=== PATIENT | female | born 1945 | race Caucasian/White ===

== ENCOUNTER 2017-04-21 18:23 | Inpatient (IN) | payer MEDICARE ==
[~2017-04-21] VITALS: Ht 162.5 cm; Wt 114.4 kg
--- NOTE | ~2017-04-21 | PR ---
[place], [place] PROGRESS NOTE NAME: JESUS GRAHAM UNIT #: [id number] ROOM: 507 DOCTOR: HUDSON MERA MD BIRTHDATE: [birth year] DOS: 04/23/2017 SUBJECTIVE: The patient came in because of shortness of breath and palpitation. She had been feeling tired as well and also had some dizziness. She had palpitation where her heart was beating fast yesterday between 2:00 and 4:00; however, monitor did not show any tachycardia. She has had ventricular bigeminy constantly with some in the form of bigeminy. She has no chest pain and no loss of consciousness. PHYSICAL EXAMINATION GENERAL: This is a patient who is moderately obese. She is alert, pleasant. VITAL SIGNS: Pulse is 72 and regular, blood pressure 154/78. NECK: Normal JVP. AJR is negative. CARDIOVASCULAR: Auscultation reveals no murmurs. EXTREMITIES: She has good pedal pulses and no edema in the lower extremities. RESPIRATORY: Lungs are clear to percussion and auscultation. Breath sounds are mildly diminished because of obesity. She had a Lexiscan Cardiolite study done, which I believe Dr. Dahl will be reporting on. An echocardiogram was read by Dr. Whitaker yesterday; it demonstrated an LVEF of 70%. IMPRESSION: 1. This patient has dyspnea on exertion probably due to obesity and possibly diastolic dysfunction of the left ventricle. 2. Ventricular bigeminy is probably chronic and in the setting of normal left ventricular systolic function, this is most likely benevolent. No new recommendations. I saw this patient on behalf of Dr. Whitaker. [place], [place] PROGRESS NOTE NAME: JESUS GRAHAM UNIT #: [id number] ROOM: 507 DOCTOR: HUDSON MERA MD BIRTHDATE: [birth year] HUDSON MERA MD CM:PNTRANS [phone] [id number] HUDSON MERA MD 04/24/17104 interface
--- NOTE | ~2017-04-21 | CON ---
[place], [place] REPORT OF CONSULTATION NAME: JESUS GRAHAM UNIT #: [id number] ROOM: 507 DOCTOR: LARISA AMEZCUA MD BIRTHDATE: [birth year] DOS: 04/22/2017 HISTORY OF PRESENT ILLNESS: A 71-year-old female, apparently was consulted. The patient was having bigeminal rhythm. The patient complains of significant dizziness. The patient had significant PVCs and bigeminy. She is a diabetic, hypertensive, hyperlipidemic. No obvious chest discomfort. Complains of dizziness. The patient has a very strong family history of coronary artery disease. PAST MEDICAL HISTORY: Significant for hypertension, hyperlipidemia, diabetes mellitus, dizziness, chronic fatigue, insomnia and labyrinthitis. PAST SURGICAL HISTORY: Hysterectomy, gastric bypass and history of partial lobectomy of the lung, history of sarcoidosis. SOCIAL HISTORY: Denies any alcohol or drug abuse. FAMILY HISTORY: Positive for coronary artery disease. ALLERGIES: IVP DYE. HOME MEDICATIONS: Lotrel, glipizide, melatonin, metformin, and Crestor. CARDIAC RISK FACTORS: Hypertension, hyperlipidemia, diabetes and strong family history of coronary artery disease. REVIEW OF SYSTEMS: CONSTITUTIONAL: No fever, no chills. HEENT: No visual disturbances or hearing problems. Does have significant dizziness. CARDIOVASCULAR: Does have chest heaviness, reports lower extremity edema. Denies palpitations. RESPIRATORY: Has pleuritic pain. NEUROLOGIC: Neurologically stable. GASTROINTESTINAL: No nausea, no vomiting. ENDOCRINE: Intact. SKIN: Normal. PHYSICAL EXAMINATION: VITAL SIGNS: Blood pressure is 120/60. HEENT: Unremarkable. NECK: Supple, no JVD, no thyromegaly, no lymphadenopathy. LUNGS: Diminished breath sounds. HEART: Sounds are regular. ABDOMEN: Soft, nontender. NEUROLOGIC: Stable. LABORATORY DATA: Sodium 141, potassium 4, BUN and creatinine is normal. Liver functions are normal. Troponin is negative. H and H is 14 and 43.9. EKG, sinus rhythm with bigeminal pattern. [place], [place] REPORT OF CONSULTATION NAME: JESUS GRAHAM UNIT #: [id number] ROOM: 507 DOCTOR: LARISA AMEZCUA MD BIRTHDATE: [birth year] IMPRESSION: The patient with diabetes, hypertension, hyperlipidemia with atypical chest discomfort and ventricular bigeminy. RECOMMENDATIONS: Because of significant risk factors, we will review the echocardiogram, add small dose of beta blockers to the current regimen. The patient already had breakfast today, unfortunately not able to do the stress test today. We will set it up as an outpatient. If the echo is abnormal, we will talk to you. Thank you for this interesting consultation. LARISA AMEZCUA MD CM:CONSTR:REPORT OF CONSULTATION 0828 04/22/17 1600 interface
[~2017-04-21 18:23] MED LIST: AMLODIPINE BESY PO; ANTIVERT25 MG PO; B12,B-12,B 12500 MC1 PO; CLINDAMYCIN300 MG PO; CRESTOR20 MG PO; GLUCOPHAGE1000 MG PO; HYDROCODONE BIT1 T11 PO; JANUVIA100 MG PO; LOTREL 5-20 MG1 EACH PO; MECLOFENAMATE S50 MG PO; MELATONIN3 MG PO; METFORMIN500 MG PO; SERTRALINE HCL100 MG PO; ZOFRAN4 MG PO
[2017-04-21 18:37] VITALS: BP 161/99
[2017-04-21 19:20] VITALS: BP 161/76
[2017-04-21 19:22] LABS: BASO % 0.4 % (0.0-1.0); EOS # 0.3 10*3/uL (0.0-0.4); EOS % 2.6 % (1.0-4.0); HEMATOCRIT 43.9 % (37.0-47.0); HEMOGLOBIN 14.4 g/dl (12.0-16.0); LYMPH # 3.9 10*3/uL (1.3-4.4); LYMPH % 37.3 % (27.0-41.0); MEAN CELL VOLUME 92.2 fl (81.0-99.0); MEAN CORPUSCULAR HGB 30.3 pg (27.0-31.0); MEAN CORPUSCULAR HGB CONC 32.8 g/dl (33.0-37.0); MEAN PLATELET VOLUME 11.8 fl (9.6-12.3); MONO # 0.9 10*3/uL (0.1-1.0); MONO % 8.7 % (3.0-9.0); NEUT # 5.3 10*3/uL (2.3-7.9); NEUT % 50.8 % (47.0-73.0); PLATELET COUNT AUTOMATED 180 10*3/uL (130-400); RED BLOOD COUNT 4.76 10*6/uL (4.10-5.10); RED CELL DISTRI WIDTH 13.1 % (0-14.5); WHITE BLOOD COUNT 10.4 10*3/uL (4.8-10.8)
[2017-04-21 19:38] LABS: ALBUMIN 3.7 gm/dl (3.1-4.5); ALKALINE PHOSPHATASE 65 U/L (45-117); BUN 18 mg/dl (7-24); CHLORIDE 106 mmol/L (98-107); CREATININE 0.75 mg/dL (0.55-1.02); SGOT/AST 12 IU/L (3-35); SGPT/ALT 22 U/L (12-78); SODIUM 141 mmol/L (136-145); TOTAL PROTEIN 7.1 gm/dL (6.4-8.2)
[2017-04-21 19:43] LABS: TROPONIN I < 0.015 ng/ml (<0.045)
[2017-04-21 20:30] VITALS: BP 143/78
[2017-04-21 21:40] VITALS: BP 161/84
--- NOTE | 2017-04-21 21:40 | NUR ---
A 71, admitted to 5E, under the services of SUZI Muñoz DO with a diagnosis of VENTRICULAR BIGEMINY, CHEST PAIN OF UNCERTAIN ETIOLOGY. Chief complaint is DIZZINESS, CHEST HEAVINESS. Patient arrived via stretcher from ER. Monitor applied. Initial assessment completed. Vital signs taken and recorded. SUZI MUÑOZ DO notified of admission to the unit. Orders received. See assessment for past medical history, medications and allergies. Patient and/Or family oriented to unit. [facility] visitation policy reviewed. Clothing/patient valuable form completed. ARIEL OCONNELL
[2017-04-21 21:51] VITALS: BP 161/84
--- NOTE | 2017-04-21 22:16 | NUR ---
NOTIFIED OF PATIENT ON FLOOR. NEW ADMISSION ORDERS TO FOLLOW.
--- NOTE | 2017-04-21 23:29 | NUR ---
SPOKE WITH REGARDING CONSULTS. INSTRUCTED TO SCHEDULE ECHO IN AM AND TO ORDER TROPONINS Q6H X2 MORE.
--- NOTE | 2017-04-21 23:34 | NUR ---
IN TO SEE PATIENT AT THIS TIME.
[2017-04-22] VITALS: BP 126/66
[2017-04-22] MEDS ORDERED: GLUCOTROL5 MG PO (00:03)
[2017-04-22] MEDS ORDERED: VITAMIN D-32000 UNI1 PO (00:03)
--- NOTE | 2017-04-22 00:13 | NUR ---
PATIENT AWARE OF HOME MEDICATIONS, BUT WAS UNSURE OF DOSES/FREQUENCIES. MED REC NOW UP TO DATE PER LIST FROM PATIENT'S GRANDDAUGHTER.
[2017-04-22 00:38] LABS: BILIRUBIN NEGATIVE (NEGATIVE); BLOOD NEGATIVE (NEGATIVE); CLARITY CLEAR (CLEAR); COLOR YELLOW (YELLOW); GLUCOSE TRACE (NEGATIVE); KETONE NEGATIVE (NEGATIVE); LEUKO ESTERASE NEGATIVE (NEGATIVE); NITRITE NEGATIVE (NEGATIVE); UROBILINOGEN 0.2 E.U./dl (0.2-1.0)
[2017-04-22 00:52] LABS: EPITHELIAL CELLS 15-20; WBC 0-2 wbc/hpf (0-5)
[2017-04-22 07:21] LABS: BASO % 0.2 % (0.0-1.0); EOS # 0.3 10*3/uL (0.0-0.4); EOS % 3.2 % (1.0-4.0); HEMATOCRIT 42.9 % (37.0-47.0); LYMPH # 3.4 10*3/uL (1.3-4.4); LYMPH % 36.1 % (27.0-41.0); MEAN CELL VOLUME 92.7 fl (81.0-99.0); MEAN CORPUSCULAR HGB 30.2 pg (27.0-31.0); MEAN CORPUSCULAR HGB CONC 32.6 g/dl (33.0-37.0); MEAN PLATELET VOLUME 11.8 fl (9.6-12.3); MONO # 0.8 10*3/uL (0.1-1.0); MONO % 8.5 % (3.0-9.0); NEUT # 4.9 10*3/uL (2.3-7.9); NEUT % 51.8 % (47.0-73.0); PLATELET COUNT AUTOMATED 165 10*3/uL (130-400); RED BLOOD COUNT 4.63 10*6/uL (4.10-5.10); RED CELL DISTRI WIDTH 13.1 % (0-14.5); WHITE BLOOD COUNT 9.5 10*3/uL (4.8-10.8)
[2017-04-22 07:52] LABS: ALBUMIN 3.4 gm/dl (3.1-4.5); ALKALINE PHOSPHATASE 59 U/L (45-117); BUN 14 mg/dl (7-24); CHLORIDE 108 mmol/L (98-107); CHOLESTEROL 132 mg/dL (<200); CREATININE 0.69 mg/dL (0.55-1.02); HDL CHOLESTEROL 46 mg/dl (40-60); LDL CHOLESTEROL 57 mg/dL (9-159); MAGNESIUM 1.7 mg/dL (1.5-2.1); PHOSPHOROUS 3.9 mg/dL (2.5-4.9); POTASSIUM 4.4 mmol/L (3.5-5.1); SGOT/AST 13 IU/L (3-35); SGPT/ALT 20 U/L (12-78); SODIUM 143 mmol/L (136-145); TOTAL PROTEIN 6.4 gm/dL (6.4-8.2); TRIGLYCERIDES 143 mg/dl (<150); VLDL CHOLESTEROL 29 mg/dL (6-40)
[2017-04-22 08:00] VITALS: BP 154/82
[2017-04-22 08:00] LABS: VITAMIN D, 25-HYDROXY 29.3 ng/mL (30-100)
--- NOTE | 2017-04-22 08:00 | NUR ---
[employer] in to talk to patient. Patient states lives at [address] with HER DAUGHTER. There are 16 steps in the home. Physician: DR RUIZ [facility]acy[facility] [place] Home health services: NONE Patient's level of ADLs: INDEPENDENT Patient has working utilities: YES DME: NONE Follow-up physician's appointment after d/c: WILL BE MADE PRIOR TO DC Does patient want to access PORTAL?: Discharge plan HOME. MARGARITA CONLEY
--- NOTE | 2017-04-22 08:21 | NUR ---
IN TO SEE PATIENT. NEW ORDERS RECEIVED.
--- NOTE | 2017-04-22 08:51 | NUR ---
ORTHO'S PERFORMED PER ORDER: SUPINE BP 156/77, HR 59 SITTING BP 183/87, HR 66 STANDING BP 155/84, HR 79 PATIENT C/O DIZZINESS WITH MINIMAL MOVEMENT. WILL CONTINUE TO MONITOR. CALL LIGHT WITHIN REACH. FAMILY AT BEDSIDE.
--- NOTE | 2017-04-22 11:10 | NUR ---
IN TO SEE PATIENT.
--- NOTE | 2017-04-22 11:29 | NUR ---
PAGED AT THIS TIME REGARDING MINUTE LONG RUN OF VENTRICULAR BIGEMINY. REQUESTING STRIPS TO BE FAXED TO . AWAITING RETURN PHONE CALL. PATIENT C/O DIZZINESS AND CHEST HEAVINESS.
--- NOTE | 2017-04-22 11:31 | NUR ---
RETURNED CALL. NO NEW ORDERS AT THIS TIME. WILL ADMINISTER METOPROLOL AT THIS TIME PER ORDER. HR NOW 60-70'S.
--- NOTE | 2017-04-22 11:40 | NUR ---
ECHO BEING PERFORMED AT THE BEDSIDE.
[2017-04-22 12:00] VITALS: BP 156/76
--- NOTE | 2017-04-22 13:41 | NUR ---
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 Jasmin Muñiz,PT
--- NOTE | 2017-04-22 14:20 | NUR ---
NOTIFIED REGARDING FAMILY AND PATIENT'S REQUEST FOR ANOTHER HOME VISITOR AND FOR STRESS TEST TO BE DONE BEFORE WEDNESDAY. AWAITING PHYSICIAN'S ORDERS.
--- NOTE | 2017-04-22 14:41 | NUR ---
PHYSICAL THERAPY Patient evaluated on 5, full evaluation to follow. Continue with PT as per plan of care with fall and significant dyspneia with minimal exertion precautions. PAtient is moderate complexity via chart review, tests and evalaution: 29643. Home with 01/03 family support and home health RN and PT versus out patient PT. Thank you for this referral. Jasmin Flores,PT
[2017-04-22 16:00] VITALS: BP 145/64
[2017-04-22 20:00] VITALS: BP 143/61
--- NOTE | 2017-04-22 20:00 | NUR ---
PATIENT IS AWAKE, ALERT AND ORIENTED X3. PLEASANT AND COOPERATIVE. LUNGS ARE CLEAR AND DIMINISHED THROUGHOUT LUNGFIELDS. ROOM AIR. ABDOMEN IS SOFT AND NON-TENDER UPON PALPATION, BOWEL SOUNDS ARE NORMOACTIVE X 4 QUADS. NO EDEMA TO BLE, PPP. PATIENT DENIES ANY PAIN OR DISCOMFORT. CALL LIGHT IS IN REACH.
[2017-04-23] VITALS: BP 142/70
--- NOTE | 2017-04-23 00:40 | NUR ---
24 HOUR CHART CHECK COMPLETED AT THIS TIME.
--- NOTE | 2017-04-23 02:19 | NUR ---
PATIENT RESTING IN BED WITH EYES CLOSED BILATERALLY. RESPIRATIONS ARE EASY AND REGULAR. NO S/S OF PAIN OR DISCOMFORT. CALL LIGHT IS IN REACH.
[2017-04-23 08:00] VITALS: BP 152/76
--- NOTE | 2017-04-23 08:25 | NUR ---
Shift chart check completed.
--- NOTE | 2017-04-23 08:41 | NUR ---
PHYSICAL THERAPY In this AM to gait Mrs Crawford for her therapy session. Pt supine in bed, all transfers were supervision x 1, no LOB. Gait total 230' X 1, supervision X 1, no LOB and little verbal cueing for gait, balance safety, Pt up in her bedside chair no complaints. End with act Ex to bilateral LE of marching, LAQ's, and ankle pumps X 20 reps each and having no problems with this. Pt with call light, phone and breakfast coming. IRLANDA RUIZ NAPHTHALENE OPERATOR.
[2017-04-23 10:15] VITALS: BP 128/43
--- NOTE | 2017-04-23 10:15 | NUR ---
PRBC STARTED. PT UNDERSTANDS S/S REACTION TO REPORT TO NURSING STAFF. IV IN RIGHT FA PATENT, FLUSHES EASILY. WILL STAY WITH PATIENT TO MONITOR, VITAL/CHECKS PER POLICY. SEE TRANSFUSION CHARTING
[2017-04-23 10:34] VITALS: BP 124/65
--- NOTE | 2017-04-23 10:43 | NUR ---
PT OFF FLOOR FOR CARDIAC TESTING
--- NOTE | 2017-04-23 11:27 | NUR ---
INFORMED SIGNED CONSENT OBTAINED FOR LEXISCAN STRESS TEST WITH DR HORNE. RESTING EKG NSR WITH PVC'S HR 64 BP 136/82. PULSE OX 94% LUNGS CLEAR. PT COMPLETED ONE MINUTE OF A LEXISCAN PROTOCOL WITH PT RECEIVING LEXISCAN 0.4MG IV OVER 10 SECONDS. TRIGEMY PVC;S NOTED. NO ST CHANGES. PT C/O CHEST HEAVINESS AND SOB WITH INJECTION. LAST RECOVERY HR 78 AND BP 140/78. PT IN STABLE CONDITION AWAITING NUCLEAR IMAGES.
[2017-04-23 12:00] VITALS: BP 154/78
[2017-04-23 16:00] VITALS: BP 126/60
[2017-04-23] MEDS ORDERED: LOPRESSOR25 MG PO (18:08)
--- NOTE | 2017-04-23 19:30 | NUR ---
Discharge instructions reviewed with patient/family. Patient receptive and verbalizes understanding. Follow-up care understood. Written instructions given to patient/family. tele off, iv out. pt without questions on discharge. understands to call for follow up appointments. daughter at bedside. MICHAEL REHMAN
--- NOTE | 2017-04-26 07:49 | NUR ---
PHYSICAL THERAPY CO-SIGN I approve of the Phyical Therapy notes written above. FROYLAN THAKKAR PT
== END 2017-04-23 19:30 | disposition home or self-care (01) | DRG 391 ==
LOC: ED 18:23 → 5E 20:48 → EDHOLD 20:48 → 5E 21:20
PROVIDERS: Emergency Medicine Emergency Medical Services; Hospitalist; ADMIT Internal Medicine
PROC: 3E073KZ Introduction of Other Diagnostic Substance into Coronary Artery, Percutaneous Approach (ICD-10-PCS; principal; 2017-04-23)
PROC: 4A12XM4 Monitoring of Cardiac Stress, External Approach (ICD-10-PCS; principal; 2017-04-23)
DX: K21.9 Gastro-esophageal reflux disease without esophagitis (principal); J18.9 Pneumonia, unspecified organism; E11.49 Type 2 diabetes mellitus with other diabetic neurological complication; F33.9 Major depressive disorder, recurrent, unspecified; E87.8 Other disorders of electrolyte and fluid balance, not elsewhere classified; Z68.41 Body mass index [BMI] 40.0-44.9, adult; R07.89 Other chest pain; F41.9 Anxiety disorder, unspecified; R00.8 Other abnormalities of heart beat; E66.01 Morbid (severe) obesity due to excess calories; I10 Essential (primary) hypertension; I95.1 Orthostatic hypotension; G47.00 Insomnia, unspecified; E78.00 Pure hypercholesterolemia, unspecified; E53.8 Deficiency of other specified B group vitamins; E78.5 Hyperlipidemia, unspecified; D86.9 Sarcoidosis, unspecified; Z98.84 Bariatric surgery status; Z90.710 Acquired absence of both cervix and uterus; Z90.89 Acquired absence of other organs; Z85.118 Personal history of other malignant neoplasm of bronchus and lung; Z82.49 Family history of ischemic heart disease and other diseases of the circulatory system; Z80.3 Family history of malignant neoplasm of breast; Z91.041 Radiographic dye allergy status; Z79.899 Other long term (current) drug therapy

== ENCOUNTER → 2017-05-03 | Outpatient (CLI) | payer MEDICARE ==
[~2017-05-03] MED LIST changes: +GLUCOTROL5 MG PO; +LOPRESSOR25 MG PO; +VITAMIN D-32000 UNI1 PO
--- NOTE | ~2017-05-03 | HM ---
[place], [place] HOLTER MONITOR REPORT NAME: JESUS GRAHAM UNIT #: [id number] ROOM: DOCTOR: YOLIS PHILLIPS [facility],[place] BIRTHDATE: [birth year] DOS: HOLTER MONITOR REPORT FINDINGS: 1. Sinus rhythm. 2. Frequent PAC. 3. Frequent PVC. 4. Occasional supraventricular tachycardia rate of 130. 5. Severe bradycardia, rate varying from 36 to 50, several episodes about 40s and a few episodes below 40. The patient's associated symptoms are lightheadedness, dizziness, fatigue and tiredness. Underlying sick sinus node syndrome with tachycardia-bradycardia episodes. The patient ____ only very small dose of beta-block agents. The patient is still having very frequent palpitations for a possible ____. The patient's bradycardia is symptomatic. PAULETTE LAGOS MD CM:HOLTER:HOLTER MONITOR REPORT [id number] HAYLEE LAGOS MD [facility]
== END | disposition home or self-care (01) ==
LOC: CARD 08:41
DX: R00.0 Tachycardia, unspecified (principal); R42 Dizziness and giddiness

== ENCOUNTER → 2017-05-31 | Outpatient (CLI) | payer MEDICARE ==
[2017-05-31 09:24] LABS: HEMATOCRIT 41.7 % (37.0-47.0); HEMOGLOBIN 13.6 g/dl (12.0-16.0); MEAN CELL VOLUME 91.9 fl (81.0-99.0); MEAN CORPUSCULAR HGB CONC 32.6 g/dl (33.0-37.0); MEAN PLATELET VOLUME 11.9 fl (9.6-12.3); RED BLOOD COUNT 4.54 10*6/uL (4.10-5.10); RED CELL DISTRI WIDTH 12.9 % (0-14.5); WHITE BLOOD COUNT 10.9 10*3/uL (4.8-10.8)
[2017-05-31 10:47] LABS: ALBUMIN 3.6 gm/dl (3.1-4.5); ALKALINE PHOSPHATASE 69 U/L (45-117); BUN 15 mg/dl (7-24); CHLORIDE 105 mmol/L (98-107); CREATININE 0.56 mg/dL (0.55-1.02); POTASSIUM 4.3 mmol/L (3.5-5.1); SGOT/AST 11 IU/L (3-35); SGPT/ALT 16 U/L (12-78); SODIUM 141 mmol/L (136-145); TOTAL PROTEIN 6.9 gm/dL (6.4-8.2)
== END | disposition home or self-care (01) ==
LOC: LAB 08:39
PROVIDERS: Family Medicine
DX: E11.9 Type 2 diabetes mellitus without complications (principal); R53.83 Other fatigue; E53.8 Deficiency of other specified B group vitamins

== ENCOUNTER → 2017-07-26 | Outpatient (CLI) | payer MEDICARE ==
[2017-07-26 09:55] LABS: HEMATOCRIT 41.1 % (37.0-47.0); HEMOGLOBIN 13.9 g/dl (12.0-16.0); MEAN CELL VOLUME 90.3 fl (81.0-99.0); MEAN CORPUSCULAR HGB 30.5 pg (27.0-31.0); MEAN CORPUSCULAR HGB CONC 33.8 g/dl (33.0-37.0); MEAN PLATELET VOLUME 11.9 fl (9.6-12.3); RED BLOOD COUNT 4.55 10*6/uL (4.10-5.10); RED CELL DISTRI WIDTH 12.5 % (0-14.5); WHITE BLOOD COUNT 10.8 10*3/uL (4.8-10.8)
[2017-07-26 10:22] LABS: ALBUMIN 3.8 gm/dl (3.1-4.5); ALKALINE PHOSPHATASE 58 U/L (45-117); BUN 16 mg/dl (7-24); CHLORIDE 106 mmol/L (98-107); CREATININE 0.72 mg/dL (0.55-1.02); POTASSIUM 4.1 mmol/L (3.5-5.1); SGOT/AST 16 IU/L (3-35); SGPT/ALT 18 U/L (12-78); SODIUM 144 mmol/L (136-145); TOTAL PROTEIN 6.8 gm/dL (6.4-8.2)
[2017-07-27 08:10] LABS: HEPATITIS B SURFACE AG Negative (Negative); HEPATITIS C VIRUS ANTIBODY <0.1 s/co (0.0-0.9)
== END | disposition home or self-care (01) ==
LOC: LAB 09:28
PROVIDERS: Family Medicine
DX: R42 Dizziness and giddiness (principal); R53.83 Other fatigue; R25.1 Tremor, unspecified; E53.8 Deficiency of other specified B group vitamins

== ENCOUNTER → 2017-11-17 | Outpatient (CLI) | payer MEDICARE ==
[2017-11-17 10:28] LABS: HEMATOCRIT 43.7 % (37.0-47.0); HEMOGLOBIN 14.6 g/dl (12.0-16.0); MEAN CORPUSCULAR HGB 30.4 pg (27.0-31.0); MEAN CORPUSCULAR HGB CONC 33.4 g/dl (33.0-37.0); MEAN PLATELET VOLUME 12.2 fl (9.6-12.3); RED BLOOD COUNT 4.8 10*6/uL (4.10-5.10); RED CELL DISTRI WIDTH 12.7 % (0-14.5); WHITE BLOOD COUNT 9.1 10*3/uL (4.8-10.8)
[2017-11-17 10:53] LABS: ALKALINE PHOSPHATASE 68 U/L (45-117); BUN 15 mg/dl (7-24); CHLORIDE 104 mmol/L (98-107); CHOLESTEROL 114 mg/dL (<200); CPK 31 U/L (26-192); CREATININE 0.83 mg/dL (0.55-1.02); HDL CHOLESTEROL 41 mg/dl (40-60); LDL CHOLESTEROL 31 mg/dL (9-159); POTASSIUM 3.7 mmol/L (3.5-5.1); SGOT/AST 15 IU/L (3-35); SGPT/ALT 16 U/L (12-78); SODIUM 140 mmol/L (136-145); TOTAL PROTEIN 6.9 gm/dL (6.4-8.2); TRIGLYCERIDES 208 mg/dl (<150); VLDL CHOLESTEROL 42 mg/dL (6-40)
== END | disposition home or self-care (01) ==
LOC: LAB 10:04
PROVIDERS: Family Medicine
DX: E78.00 Pure hypercholesterolemia, unspecified (principal); E11.9 Type 2 diabetes mellitus without complications; I10 Essential (primary) hypertension; R53.83 Other fatigue

== ENCOUNTER → 2018-03-03 | Outpatient (CLI) | payer MEDICARE | END | disposition home or self-care (01) | LOC: MAMMO 08:09 | DX: Z12.31 Encounter for screening mammogram for malignant neoplasm of breast (principal) ==

== ENCOUNTER → 2018-06-02 | Outpatient (CLI) | payer MEDICARE ==
[2018-06-02 12:02] LABS: ALBUMIN 3.8 gm/dl (3.1-4.5); ALKALINE PHOSPHATASE 295 U/L (45-117); BUN 20 mg/dl (7-24); CHLORIDE 108 mmol/L (98-107); CHOLESTEROL 127 mg/dL (<200); CPK 24 U/L (26-192); CREATININE 0.63 mg/dL (0.55-1.02); HDL CHOLESTEROL 66 mg/dl (40-60); LDL CHOLESTEROL 43 mg/dL (9-159); POTASSIUM 4.1 mmol/L (3.5-5.1); SGOT/AST 136 IU/L (3-35); SGPT/ALT 150 U/L (12-78); SODIUM 141 mmol/L (136-145); TOTAL PROTEIN 6.7 gm/dL (6.4-8.2); TRIGLYCERIDES 88 mg/dl (<150); VLDL CHOLESTEROL 18 mg/dL (6-40)
== END | disposition home or self-care (01) ==
LOC: LAB 11:01
PROVIDERS: Family Medicine
DX: I10 Essential (primary) hypertension (principal); E11.9 Type 2 diabetes mellitus without complications; E55.9 Vitamin D deficiency, unspecified; E78.00 Pure hypercholesterolemia, unspecified

== ENCOUNTER → 2018-06-10 | Outpatient (CLI) | payer MEDICARE ==
[2018-06-10 09:49] LABS: ALBUMIN 3.9 gm/dl (3.1-4.5); ALKALINE PHOSPHATASE 316 U/L (45-117); BUN 19 mg/dl (7-24); CHLORIDE 106 mmol/L (98-107); CREATININE 0.74 mg/dL (0.55-1.02); POTASSIUM 3.8 mmol/L (3.5-5.1); SGOT/AST 87 IU/L (3-35); SGPT/ALT 99 U/L (12-78); SODIUM 140 mmol/L (136-145); TOTAL PROTEIN 7.1 gm/dL (6.4-8.2)
== END | disposition home or self-care (01) ==
LOC: LAB 09:05
PROVIDERS: Family Medicine
DX: R10.9 Unspecified abdominal pain (principal); R79.89 Other specified abnormal findings of blood chemistry

== ENCOUNTER → 2018-06-28 | Outpatient (CLI) | payer MEDICARE ==
[2018-06-28 10:10] LABS: LIPASE 77 U/L (73-393)
[2018-06-28 10:12] LABS: GAMMA GLUTAMYL TRANSPEPTIDASE 1195 U/L (5-55)
[2018-06-29 07:06] LABS: HEPATITIS B SURFACE AG Negative (Negative); HEPATITIS C VIRUS ANTIBODY <0.1 s/co (0.0-0.9)
[2018-06-29 14:07] LABS: ANTI-SMOOTH MUSCLE ANTIBODY 5 Units (0-19)
== END ==
LOC: LAB 08:53
PROVIDERS: Family Medicine
DX: R10.11 Right upper quadrant pain (principal); Z79.899 Other long term (current) drug therapy

== ENCOUNTER 2018-11-19 15:25 | Inpatient (IN) | payer MEDICARE ==
[2018-11-19] VITALS (7 sets, daily range): BP systolic 131–149; BP diastolic 60–114
[~2018-11-19] VITALS: Ht 162.6 cm; Wt 68.7 kg
--- NOTE | ~2018-11-19 | PR ---
[place], [place] PROGRESS NOTE NAME: JESUS GRAHAM [facility] #: [id number] UNIT #: [id number] ROOM: 425 DOCTOR: BLAIR VILLAGRAN MD BIRTHDATE: [birth year] DOS: 11/22/2018 SUBJECTIVE: The patient is resting comfortably. She feels much better. She is about to eat her breakfast. OBJECTIVE: VITAL SIGNS: Blood pressure is 178/88, pulse of 79, respirations 18, temperature 97.6. LUNGS: Diminished breath sounds, clear this morning. HEART: Regular. ABDOMEN: Obese, soft, nontender. EXTREMITIES: Without any edema. ASSESSMENT AND PLAN: 1. The patient admitted with shortness of breath. Chest x-ray showing bilateral pulmonary nodules with bilateral pneumonia. I believe this could be obstructive pneumonia rather than an infectious pathology. We will ask Dr. Hernandez for an opinion. Chest x-ray continues to show the infiltrates. The patient is clinically much improved and the sputum culture preliminary shows normal [place]a. 2. Hypoalbuminemia with lymphedema. The patient is encouraged to eat more protein. 3. CA pancreas with metastatic disease, diffuse on chemotherapy. If Dr. Hernandez feels this is an obstructive pneumonia, the plan is to discharge the patient to home tomorrow. BLAIR VILLAGRAN MD CM:PNTRANS [phone] BLAIR VILLAGRAN MD 11/23/18 0036 interface
--- NOTE | ~2018-11-19 | PR ---
[place], [place] PROGRESS NOTE NAME: JESUS GRAHAM [facility] #: [id number] UNIT #: [id number] ROOM: 425 DOCTOR: ROBERT BOGGS MD,FRANCISCA BIRTHDATE: [birth year] DOS: 11/24/2018 SUBJECTIVE: The patient was noted comfortable at this time, resting to have symptoms of chest pain, shortness of breath has been gradually subsiding, still noted with hypoxia at rest. She has not been noted with symptoms of fever or chills, symptoms of hemoptysis, abdominal pain, nausea, vomiting, and diarrhea. The patient does not report any symptoms of headache, or diplopia. Remaining systems were reviewed. They were noted all negative. PHYSICAL EXAMINATION: VITAL SIGNS: Normal temperature, respiratory rate 20, heart rate 80, blood pressure 122/60-149/86. Pulse oxygen saturation on room air is 86% with 2 to 3 liters nasal cannula 98% saturation recorded. HEENT: Examination shows head was atraumatic. Eyes nonicterus. NECK: Supple. CARDIOVASCULAR: S1, S2 audible. LUNGS: Decreased breath sounds in the lungs. The patient still noted bilaterally. ABDOMEN: Soft, nontender. Bowel sounds present. EXTREMITIES: The patient were noted without any edema. MUSCULOSKELETAL: Without acute deformities. CENTRAL NERVOUS SYSTEM: The patient's cranial nerves 2-12 intact. LABORATORY DATA: BMP that was done this morning, BUN 12, creatinine normal, glucose 151. Potassium was noted 2.9, sodium 146. CBC this morning WBC of 11.4, hemoglobin 10.6, and platelet count 325,000. IMPRESSION: 1. The patient with pulmonary infiltration, ground glass opacity with acute respiratory failure, currently treated for possibility of pneumonia, known history of pancreatic cancer with mets to the lungs and the liver. 2. Hyperkalemia due to treatment secondary to diuretics. PLAN OF MANAGEMENT: The patient has been currently ordered. Discharge the patient by primary care attending. Chest x-ray will be obtained for further assessment. Supplementation of the potassium as well. Based on the chest x-ray assessment, further recommendation about discharge from my standpoint will be given to the nursing staff. The patient most likely will need oxygen supplementation at home and need to be assessed for that. She has been ordered supplementation of the potassium by Dr. Pettit. Other therapy, plan of management with planned treatment changes will be made based on progression of the illness. [place], [place] PROGRESS NOTE NAME: JESUS GRAHAM UNIT #: [id number] ROOM: 425 DOCTOR: FRANCISCA MADRID MD BIRTHDATE: [birth year] FRANCISCA JONES MD CM:PNDANIEL [id number] FRANCISCA BOGGS MD 12/05/18 1018 interface
--- NOTE | ~2018-11-19 | WRIGHTHP ---
[place], [place] PATIENT HISTORY AND PHYSICAL EXAM NAME: JESUS GRAHAM [facility] #: [id number] UNIT #: [id number] ROOM: 407 DOCTOR: BLAIR VILLAGRAN MD BIRTHDATE: [birth year] DOS: 11/19/2018 HISTORY OF PRESENT ILLNESS: This patient is 73-year-old, not known to me. The patient states that she has had increasing shortness of breath for the last 3-4 days, was supposed to have chemotherapy 2 weeks ago, went to see Dr. Simons, but did not get it because of the ongoing lung issue with the possibility of pneumonia. She was given Levaquin, but did not get any better, so she decided to come into the Emergency Room. She denies having any chest pains or palpitations. She does not use oxygen at home, but is currently requiring it, does not have any fever or chills, does not have any abdominal pain, nausea, emesis. PAST MEDICAL HISTORY: Significant for: 1. Bronchial carcinoid about 15-20 years ago. 2. CA of pancreas diagnosed in June 2018. 3. Type 2 diabetes mellitus. 4. Mixed hyperlipidemia. 5. Benign hypertension. 6. History of gastric bypass. 7. Chronic pernicious anemia. MEDICATIONS: She is currently on are amlodipine 5 daily, Creon 2400 mg with meals, vitamin D 2000 units daily, Ogden 5 q. 6 hours, mirtazapine 15 daily, ondansetron 8 mg q. 6 hours p.r.n., Protonix 40 daily, sertraline 100 daily. SOCIAL HISTORY: Nonsmoker, does not use any alcohol. 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 She is a , has 2 grown children. PHYSICAL EXAMINATION: GENERAL: She is awake and alert and oriented, in significant respiratory distress, especially when she does any kind of movement at all. VITAL SIGNS: Graphic trend shows blood pressure 132/70, pulse of 90, respirations 20. NECK: Supple. No lymph nodes. LUNGS: Diminished breath sounds, rales throughout. HEART: Regular. ABDOMEN: Obese, soft, nontender. EXTREMITIES: With trace edema bilaterally. ASSESSMENT AND PLAN: 1. A patient who presents with cough and mild shortness of breath with chest x-ray showing pneumonia. The patient is placed on IV antibiotics. 2. Carcinoma of the pancreas, on chemotherapy. 3. Hypokalemia, supplemented. Potassium levels have improved. 4. Check V/Q scan to make sure that she does not have underlying deep venous thrombosis. [place], [place] PATIENT HISTORY AND PHYSICAL EXAM NAME: JESUS GRAHAM UNIT #: [id number] ROOM: [facility] DOCTOR: BLAIR VILLAGRAN MD BIRTHDATE: [birth year] BLAIR VILLAGRAN MD CM:HISPHYS:PATIENT HISTORY AND PHYSICAL EXAMINATION 8 BLAIR VILLAGRAN MD 11/20/18 0942 interface
--- NOTE | ~2018-11-19 | PR ---
[place], [place] PROGRESS NOTE NAME: [id number] #: [id number] ROOM: 425 DOCTOR: ROBERT BOGGS MD,FRANCISCA BIRTHDATE: [birth year] DOS: 11/25/2018 PULMONARY PROGRESS NOTE SUBJECTIVE: She has been doing well at this time without any acute distress, comfortably lying in the bed this morning. There were no symptoms of acute shortness of breath, coughing, or chest pain reported. OBJECTIVE: VITAL SIGNS: Reviewed as normal temperature, respiratory rate 20, heart rate 97, blood pressure 153/72. The pulse oxygen saturation was recorded as 95% saturation on 2 liters nasal cannula. HEENT: Head was atraumatic, eyes nonicterus. NECK: Supple. CARDIOVASCULAR: S1 and S2 audible. LUNGS: The patient is without any wheezing or crackles at the present time. Breaths are noted decreased in the lungs bilaterally. ABDOMEN: Soft, nontender. Bowel sounds present. EXTREMITIES: No acute change. IMPRESSION: Stable respiratory status, bilateral pulmonary infiltration with history of pancreatic cancer, and respiratory failure, stable. PLAN OF TREATMENT: The patient could be discharged home on oral antibiotics, followed by primary care physician and medical oncologist. Oxygen arrangement for home use has been already made by Dr. Betzy Pettit. FRANCISCA JONES MD CM:PNTRANS [phone] FRANCISCA BOGGS MD 11/26/18218 interface
--- NOTE | ~2018-11-19 | EKG ---
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
--- NOTE | ~2018-11-19 | EKG ---
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
--- NOTE | ~2018-11-19 | DS ---
[place], [place] DISCHARGE SUMMARY NAME: JESUS GRAHAM [facility] #: [id number] UNIT #: [id number] ROOM: 425 DOCTOR: BLAIR PETTIT MD BIRTHDATE: [birth year] DOS: 11/25/2018 DIAGNOSES: 1. Bilateral pneumonia with negative sputum and blood cultures. 2. Interstitial process in the lung. This could indicate a lymphangitic spread rather than infectious pathology. The patient declined a CT scan. 3. Carcinoma pancreas with metastasis on chemotherapy. 4. Hypokalemia. 5. Chronic lymphedema. 6. Hypoalbuminemia. 7. Adult failure to thrive. 8. Benign hypertension. 9. Mixed hyperlipidemia. 10. History of gastric bypass. 11. Chronic pernicious anemia. 12. History of bronchial carcinoid. 13. Type 2 diabetes mellitus. DISCHARGE MEDICATIONS: Will be doxycycline 100 mg twice a day for 7 days, potassium 10 daily, amlodipine 5 daily, Dorothy q.6 p.r.n. 5 mg, Zofran 8 mg q.6 p.r.n. for nausea, Remeron 15 at bedtime, sertraline 100 daily, multivitamin 1 tablet daily, Protonix 40 daily, vitamin D 2000 units daily, Creon 2400 mg t.i.d. with meals, ibuprofen 800 mg t.i.d. p.r.n. HOSPITAL COURSE: The patient is 73 years old, comes in with complaints of shortness of breath and cough. She was being treated as an outpatient with an antibiotic for possibility of chest infection and was not getting any better. She came to the Emergency Room, had a slightly elevated white cell count and a chest x-ray showing bilateral infiltrates diagnosed with pneumonia and was admitted. After admission, she was placed on IV antibiotics. Sepsis was ruled out with negative cultures. She seemed to have quite a lot of third spacing and lymphedema, possibly from hypoalbuminemia. Venous Doppler and V/Q scan was ordered. The patient refused V/Q scan. Venous Doppler came back negative. Sputum cultures and blood cultures have all come back negative. PT/OT has been consulted. For hypokalemia, supplementation has been ordered. The patient is overall stable and achieved a maximum benefit from stay here. Dr. Hernandez did see the patient and the possibility of lymphangitic spread has been raised, but unfortunately we were unable to get a CT scan of the chest because the patient declined. This morning, the patient is stable. Potassium is 2.9. We will give her supplementation this morning. Recheck the potassium and if it is okay, the plan is to discharge her to home with visiting nurses and PT, OT. ADDENDUM The patient is a patient of Dr. Blair Pettit. The patient was supposedly to be discharged yesterday. The oxygen was arranged. The patient has been ordered the potassium supplementation as well. The potassium level improved to 3.4, but the patient refused to be discharged home yesterday. She has been assessed and examined and was not noted any new changes [place], [place] DISCHARGE SUMMARY NAME: JESUS GRAHAM UNIT #: [id number] ROOM: 425 DOCTOR: BLAIR PETTIT MD BIRTHDATE: [birth year] as was yesterday and the patient was assessed and could be discharged to the home setting with oxygen supplementation and other treatment. BLAIR PETTIT MD CM:JULIENNE [id number] BLAIR PETTIT MD 11/26/18 0617 interface
--- NOTE | ~2018-11-19 | PR ---
[place], [place] PROGRESS NOTE NAME: JESUS GRAHAM [facility] #: [id number] UNIT #: [id number] ROOM: 425 DOCTOR: BLAIR VILLAGRAN MD BIRTHDATE: [birth year] DOS: SUBJECTIVE: The patient is feeling good and is not having any complaints. OBJECTIVE: VITAL SIGNS: Graphic trend shows a pressure 122/62, pulse of 80, respirations 20, temperature 97.9. LUNGS: Diminished breath sounds. HEART: Regular. ABDOMEN: Obese, soft, nontender. EXTREMITIES: Chronic lymphedema, third spacing noticed in the upper extremity, seems to be better. LABORATORY DATA: White cell count is 11.4, hemoglobin 10.6, hematocrit 33.9. BMP: Glucose 151, BUN 12, creatinine 0.54. Sodium 146, potassium 2.9, chloride 109, bicarbonate 30. Sputum culture shows light yeast, normal modesta. ASSESSMENT AND PLAN: 1. The patient who presents with shortness of breath and cough diagnosed with pneumonia, but this most likely is lymphangitic pneumonia rather than an infectious etiology. Unfortunately, we were unable to do any CAT scans. The patient refused. 2. Interstitial lung disease, possibly again from the metastatic process rather than an infectious process. The patient is to follow up with PCP as well as Oncology. 3. Hypokalemia. Supplementation will be given. 4. Adult failure to thrive. PT to evaluate her and after that the patient should be able to go home. BLAIR VILLAGRAN MD CM:PNTRANS [id number] BLAIR VILLAGRAN MD 11/25/18 0447 interface
--- NOTE | ~2018-11-19 | EKG ---
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 Kim : 1945 Requested By: BLAIR VILLAGRAN Order Number: [id number] Reading MD: Deo Puga MD Measurements Intervals [place] Rate: 102 P: 40 CO: 136 QRS: -12 QRSD: 83 T: -10 QT: 337 QTc: 439 Interpretive Statements Sinus tachycardia Paired ventricular premature complexes Left atrial enlargement Anterior infarct, age indeterminate Compared to ECG 11/19/2018 21:47:47 Ventricular premature complex(es) now present Atrial abnormality now present Sinus rhythm no longer present Myocardial infarct finding still present Electronically Signed On 11-23-2018 9:39:21 PDT by Deo Puga MD CM:EKGRPT:ELECTROCARDIOGRAM REPORT [id number] BLAIR VILLAGRAN MD EPIPHANY DRAFT REPORT BLAIR VILLAGRAN MD
--- NOTE | ~2018-11-19 | PR ---
[place], [place] PROGRESS NOTE NAME: JESUS GRAHAM [facility] #: [id number] UNIT #: [id number] ROOM: 425 DOCTOR: BLAIR VILLAGRAN MD BIRTHDATE: [birth year] DOS: SUBJECTIVE: The patient is resting comfortably, does not have any new complaints. OBJECTIVE: VITAL SIGNS: Blood pressure is 148/81, pulse of 96, respirations 16, temperature 98.1. LUNGS: Diminished breath sounds. HEART: Regular. ABDOMEN: Obese, soft. EXTREMITIES: Quite a lot of third spacing noticed. LABORATORY DATA: Sputum culture, normal modesta with light yeast. ASSESSMENT AND PLAN: 1. Bilateral pneumonia, most likely obstructive in pattern. The patient was advised to have a V/Q scan as well as a CT of the chest and she refused both. 2. Adult failure to thrive, being evaluated by physical therapy. 3. Chemosis noticed in the eyes. One dose of Lasix to be given. Last echocardiogram in 2016 showed normal LV function without any wall motion abnormalities or major valvular heart disease. 4. Pancreatic carcinoma with mets. Overall, prognosis is poor. BLAIR VILLAGRAN MD CM:PNTRANS [id number] BLAIR VILLAGRAN MD 11/23/18 1904 interface
--- NOTE | ~2018-11-19 | CON ---
[place], [place] REPORT OF CONSULTATION NAME: JESUS GRAHAM [facility] #: [id number] UNIT #: [id number] ROOM: 425 DOCTOR: ROBERT BOGGS MDFRANCISCA BIRTHDATE: [birth year] DOS: 11/22/2018 PULMONARY CONSULTATION EVALUATION AND MANAGEMENT CONSULTATION REQUESTED BY: Betzy Pettit MD REASON FOR CONSULTATION: For assessment of possibility of acute pneumonia. HISTORY OF PRESENT ILLNESS: The patient was noted a 73-year-old white female patient admitted to the hospital under the care of Dr. Betzy Pettit on 11/19/2018. The patient presented to the hospital. The patient was having progressive increased shortness of breath for the past 3 to 4 days. She has been receiving chemotherapy by Dr. Simons from [facility] in [place], [place]. She has been diagnosed with cancer of the pancreas with metastasis to the lungs. The patient has been treated with chemotherapy since then. She does complain of symptoms of wheezing at times and edema of the lower extremity. Denies symptoms of coughing or any chest pain. The patient has been assessed with a chest x-ray, which was suggested as pneumonia diagnosis and the patient currently admitted to the hospital for further care. This morning, the patient is sitting on the bed, stating that she has been feeling better than previously. She denies symptoms of hemoptysis. REVIEW OF SYSTEMS: CONSTITUTIONAL SYMPTOMS: Fatigue and tiredness noted. Denies any symptoms of fever or chills. EYES: Denies any burning, redness, or tenderness. EAR, NOSE, THROAT SYMPTOMS: Denies sore throat, hoarseness, otalgia, or postnasal drainage. CARDIOVASCULAR SYSTEM: Edema of lower extremities. Denies symptoms of orthopnea. Denies palpitations or angina pain. GASTROINTESTINAL SYMPTOMS: Denies dysphagia, nausea, vomiting, diarrhea, abdominal pain, hematemesis, melena, or hematochezia. GENITOURINARY SYMPTOMS: Denies dysuria, urinary incontinence, or hematuria. MUSCULOSKELETAL SYMPTOMS: Denies any joint pain. No deformities or redness. CENTRAL NERVOUS SYSTEM: No dizziness, headache, diplopia, or syncopal episodes. Remaining systems were reviewed. They were noted all negative. PAST MEDICAL HISTORY: 1. Diagnosis of pancreatic cancer in 06/2018, mets to the lungs. 2. History of bronchial carcinoid several years ago. 3. Type 2 diabetes mellitus. 4. Mixed hyperlipidemia. 5. Benign essential hypertension. 6. History of morbid obesity with gastric bypass surgery. PAST SURGICAL HISTORY: 1. Gastric bypass surgery. 2. ERCP with stent placement as well previously. 3. Pacemaker insertion. [place], [place] REPORT OF CONSULTATION NAME: JESUS GRAHAM UNIT #: [id number] ROOM: 425 DOCTOR: ROBERT BOGGS [facility] BIRTHDATE: [birth year] 4. Cholecystectomy. 5. Hysterectomy. 6. Appendectomy. 7. Right knee replacement. 8. Left partial lobectomy for the carcinoid tumor. SOCIAL HISTORY: The patient is currently . She lives at home. Reported nonsmoker lifetime and has 2 children. FAMILY HISTORY: The patient was reported for malignancy. CURRENT MEDICATIONS: Administered for the patient on this hospitalization are use of Remeron, Zoloft, amlodipine, Protonix, IV Rocephin, Zithromax, ibuprofen, Creon capsule 3 times a day with meals and multivitamin soft gel 1 a day. DRUG ALLERGIES: IVP DYE ALLERGIES. PHYSICAL EXAMINATION: GENERAL: This is a 73-year-old female patient who has been currently noted awake and alert without any acute distress, sitting on the side of bed, using oxygen supplementation by the nasal cannula. Height recorded by the nursing staff on current admission as 5 feet 4 inches, weight of 143 pounds, BMI 24. VITAL SIGNS: For the patient, which are recorded shows normal temperature, respiratory rate 18-16, heart rate 95-79, blood pressure is 156/67-178/88. HEENT: Examination shows head was atraumatic. Eyes nonicterus. NECK: Supple. CARDIOVASCULAR SYSTEM: S1 and S2 audible. LUNGS: Scattered crackles in the lungs with decreased breath sounds bilaterally. ABDOMEN: Soft, nontender. Bowel sounds present. EXTREMITIES: Noted 1+ pitting edema of the lower extremities without any deformities. MUSCULOSKELETAL: Noted without any acute deformities. CENTRAL NERVOUS SYSTEM: Appeared to be generally intact. No focal deficit. LABORATORY DATA: CBC that was done on 11/19/2018; normal WBC count, hemoglobin 10.8, platelet count 445,000. CMP that was done on 11/19/2018 admission; normal BUN and creatinine, glucose 148, potassium 3.2. Albumin 1.7. Troponin 3 sets on 11/19/2018 noted as negative. Blood culture, no bacterial growth. The culture of the sputum was showing preliminary normal modesta from yesterday. The Gram stain noted with upper respiratory tract specimen; many epithelial cells and white blood cells. Ultrasound of the bilateral lower extremities was completed, does not show any deep venous thrombosis. Blood culture so far showed no bacterial growth. The chest x-ray, which was reviewed in this hospital on the of this month was completed on admission was noted with pulmonary nodules with bilateral pulmonary infiltration, which were noted scattered. CT scan of chest was ordered yesterday, which was refused by the patient. She also has a V/Q scan ordered by Dr. Betzy Pettit, which was canceled due to the patient's refusal to get the testing done. She has a CT scan of the chest, abdomen and pelvis, which was completed in [place], [place] REPORT OF CONSULTATION NAME: JESUS GRAHAM UNIT #: [id number] ROOM: 425 DOCTOR: FRANCISCA MADRID MD BIRTHDATE: [birth year] [facility], which was reviewed and it was noted with evidence of pulmonary nodule in the lungs bilaterally. The liver met was also noted. Evidence of a stent in the pancreatic and bile ducts was also reported. IMPRESSION: 1. The patient who has been currently admitted to the hospital was noted with increased shortness of breath. The CT scan on was showing bilateral ground-glass opacities at that time, current findings essentially were not suggestive of acute pneumonia. The ground-glass opacity could be seen with the possibility of allergic drug reaction including chemotherapy cannot be completely excluded. Empirically, the patient has been treated with acute pneumonia. 2. Edema of the lower extremity, most likely secondary to fluid overload, rule out congestive heart failure as well. 3. Known history of pancreatic cancer with metastasis to the lung with reported reduction of the size of the nodule with the last CT scan of the chest report from [facility]. Pulmonary infiltration certainly is secondary to congestive heart failure and fluid overload would be also considered. PLAN OF MANAGEMENT: At this time, the patient is receiving IV Zithromax and Rocephin. Continue treatment for the pneumonia, refusing further CT scan or other assessment done at the present time. Continue conservative treatment, diuretic therapy in case of worsening of the edema. Consider getting a Cardiology consultation from the cardiac standpoint to assess the possibility of congestive heart failure with worsening current chest x-ray appearance. The respiratory tract specimen noted suboptimal at the present time. Continuation of other plan of management, DVT prophylaxis. Other supportive plan of treatment and care plan. If the patient wishes, she could be transferred to her medical oncologist in [facility] in [place], [place] for further assessment, management and ongoing acute illnesses. Other therapy, plan of management with additional treatment changes will be ordered based on progression of the illness. Thanks for allowing me to participate in the care of this patient. FRANCISCA JONES MD CM:CONSTR:REPORT OF CONSULTATION 1051 11/23/18 0130 interface
--- NOTE | ~2018-11-19 | PR ---
[place], [place] PROGRESS NOTE [id number] UNIT #: [id number] ROOM: 425 DOCTOR: DAVIDSON PENNY MD BIRTHDATE: [birth year] DOS: Addendum to discharge surgery from yesterday by Dr. Pettit. SUBJECTIVE: The patient has bilateral pneumonia, hypoxemia, going home on oxygen today cleared by Dr. Hernandez, the drywall finishing foreman. OBJECTIVE: GENERAL APPEARANCE: The patient is alert and oriented x 3, in no visible distress. VITAL SIGNS: Blood pressure 153/72, heart rate 97 beats per minute, breathing 20 times per minute, temperature 99 degrees Fahrenheit. The patient is wearing oxygen. HEENT AND NECK: Exam within normal limits. CARDIOVASCULAR SYSTEM: Heart rate is regular in rate and rhythm. S1 and S2 normally audible. LUNGS: Clear to auscultation. ABDOMEN: Soft, nontender. No obvious organomegaly. Bowel sounds are present. EXTREMITIES: Without significant cyanosis or edema. IMPRESSION: 1. Bilateral pneumonia, improving with treatment. The patient is going home with doxycycline. 2. Hypoxemia from chronic respiratory failure, treated with oxygen now. 3. Carcinoma of the pancreas with metastasis, remains on chemotherapy. 4. Protein-calorie malnutrition, severe with albumin level of 1.7. 5. Mixed hyperlipidemia, to be followed and treated. 6. Benign essential hypertension, treated and controlled. 7. Type 2 diabetes mellitus. Blood sugars to be monitored and treated. Follow up with Dr. Pettit within a week of discharge. DAVIDSON PENNY MD CM:PNTRANS [id number] DAVIDSON PENNY MD 11/25/18 1638 interface
--- NOTE | ~2018-11-19 | PR ---
[place], [place] PROGRESS NOTE NAME[id number] UNIT #: [id number] ROOM: 425 DOCTOR: ROBERT BOGGS MD,FRANCISCA BIRTHDATE: [birth year] DOS: 11/23/2018 SUBJECTIVE: She was comfortably sitting on the bed this morning of assessment reporting reduction of shortness of breath and coughing. Denies symptoms of fever, chills or any hemoptysis. OBJECTIVE: VITAL SIGNS: Normal temperature, respiratory rate 18, heart rate 83, blood pressure 116/69, pulse oxygen saturation 3 liters nasal cannula 98% saturation. HEENT: Head was atraumatic. Eyes nonicterus. NECK: Supple. CARDIOVASCULAR: S1, S2 audible. LUNGS: No wheezing or crackles. Breath sound are noted decreased in the lungs bilaterally, greater on the left than the right side. ABDOMEN: Soft, nontender. Bowel sounds are present. IMPRESSION: Bilateral pulmonary infiltration, ground glass opacity, exact etiology is unclear, currently treated empirically for pneumonia. History of known pancreatic cancer with metastasis to the liver and the lungs. PLAN OF MANAGEMENT: Symptomatically, the patient has been improving. No change in treatment or recommendation will be made today. The patient will be continued on current plan of therapy as in progress with other care as previously. FRANCISCA JONES MD CM:PNTRANS 1124 180 FRANCISCA BOGGS MD 11/23/18 180 interface
--- NOTE | ~2018-11-19 | EKG ---
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
--- NOTE | ~2018-11-19 | PR ---
[place], [place] PROGRESS NOTE [id number] UNIT #: [id number] ROOM: 425 DOCTOR: BLAIR VILLAGRAN MD BIRTHDATE: [birth year] DOS: SUBJECTIVE: The patient is doing better, but still slightly short of breath. OBJECTIVE: VITAL SIGNS: Graphic trend shows a pressure 135/61, pulse of 92, respirations 18, temperature 97.8. LUNGS: Diminished breath sounds, few rales heard at the bases. HEART: Regular. ABDOMEN: Obese. EXTREMITIES: Without any edema. ASSESSMENT AND PLAN: 1. Bilateral pneumonia, which is probably most obstructive from underlying metastatic disease, on intravenous antibiotics. 2. Pulmonary metastasis noted diffusely. This could be causing some of her shortness of breath. A CT of the chest will be ordered today. 3. Swelling of the lower legs, possibly from hypoalbuminemia. The patient is ordered a venous Doppler, WILLI hose stockings was advised No diuretics to be ordered right now. 4. Pancreatic carcinoma, on chemotherapy. BLAIR VILLAGRAN MD CM:PNTRANS [phone] BLAIR VILLAGRAN MD 11/21/182201 interface
[2018-11-19 15:57] LABS: BASO % 0.3 % (0.0-1.0); EOS # 0.1 10*3/uL (0.0-0.4); EOS % 0.6 % (1.0-4.0); HEMOGLOBIN 10.8 g/dl (12.0-16.0); LYMPH # 1.6 10*3/uL (1.3-4.4); LYMPH % 15.1 % (27.0-41.0); MEAN CELL VOLUME 106.8 fl (81.0-99.0); MEAN CORPUSCULAR HGB CONC 32.7 g/dl (33.0-37.0); MEAN PLATELET VOLUME 10.9 fl (9.6-12.3); MONO # 1.1 10*3/uL (0.1-1.0); NEUT % 73.3 % (47.0-73.0); PLATELET COUNT AUTOMATED 445 10*3/uL (130-400); RED BLOOD COUNT 3.09 10*6/uL (4.10-5.10); RED CELL DISTRI WIDTH 20.5 % (0-14.5); WHITE BLOOD COUNT 10.8 10*3/uL (4.8-10.8)
[2018-11-19 16:14] LABS: ALBUMIN 1.7 gm/dl (3.1-4.5); ALKALINE PHOSPHATASE 263 U/L (45-117); BUN 15 mg/dl (7-24); CHLORIDE 108 mmol/L (98-107); CREATININE 0.58 mg/dL (0.55-1.02); POTASSIUM 3.2 mmol/L (3.5-5.1); SGOT/AST 34 IU/L (3-35); SGPT/ALT 24 U/L (12-78); SODIUM 144 mmol/L (136-145); TOTAL PROTEIN 5.1 gm/dL (6.4-8.2); TROPONIN I < 0.015 ng/ml (<0.045)
[2018-11-19 16:23] LABS: ACT PARTIAL THROMBO TIME 23.1 SECONDS (20.8-31.5); INTERNATIONAL NORM RATIO 1.1 (2.0-3.5)
[2018-11-19] MEDS ORDERED: NORVASC5 MG PO (18:39)
[2018-11-19] MEDS ORDERED: LEVOFLOXACIN500 MG PO (18:40)
[2018-11-19] MEDS ORDERED: HYDROCODONE-AC1 EAC1 PO (18:41)
[2018-11-19] MEDS ORDERED: ONDANSETRON4 M1 PO (18:43)
[2018-11-19] MEDS ORDERED: MIRTAZAPINE15 M2 PO (18:44)
[2018-11-19] MEDS ORDERED: SERTRALINE HYD100 MG PO (18:44)
[2018-11-19] MEDS ORDERED: MULTIVIT A B D PO (18:45)
[2018-11-19] MEDS ORDERED: PANTOPRAZOLE SO40 MG PO (18:46)
[2018-11-19] MEDS ORDERED: VITAMIN D32000 UNIT PO (18:46)
[2018-11-19] MEDS ORDERED: CREON DR 24,001 EACH PO (18:47)
--- NOTE | 2018-11-19 20:50 | NUR ---
Time: 2049 A 73 year old F admitted to 4E under services of BLAIR JEFFRIES MD. Pt. arrived via stretcher from ER. Chief complaint: SHORTNESS OF BREATH. KALYN PITTS
--- NOTE | 2018-11-19 21:05 | NUR ---
MED REC UP TO DATE BY ZENON CASAS RN VIA MEDS BOUGHT IN BY PATIENT.
--- NOTE | 2018-11-19 21:49 | NUR ---
ADMISSION ORDERS RECIEVED FROM DR. VILLAGRAN AT THIS TIME.
--- NOTE | 2018-11-19 23:45 | NUR ---
PATIENT C/O SHORTNESS OF BREATH, PULSE OX 92% ON 4L VIA NASAL CANNULA. PATIENT SAT ON SIDE OF BED WHERE BREATHING IMPROVED AND NOW DECLINES SHORTNESS OF BREATH.
[2018-11-20] VITALS: BP 134/83
[2018-11-20 06:00] LABS: HEMATOCRIT 31.9 % (37.0-47.0); MEAN CELL VOLUME 108.5 fl (81.0-99.0); MEAN CORPUSCULAR HGB CONC 31.3 g/dl (33.0-37.0); MEAN PLATELET VOLUME 10.8 fl (9.6-12.3); PLATELET COUNT AUTOMATED 374 10*3/uL (130-400); RED BLOOD COUNT 2.94 10*6/uL (4.10-5.10); RED CELL DISTRI WIDTH 20.5 % (0-14.5); WHITE BLOOD COUNT 8.9 10*3/uL (4.8-10.8)
[2018-11-20 06:20] LABS: BUN 15 mg/dl (7-24); CHLORIDE 109 mmol/L (98-107); CREATININE 0.57 mg/dL (0.55-1.02); POTASSIUM 3.9 mmol/L (3.5-5.1); SODIUM 143 mmol/L (136-145)
[2018-11-20 07:35] LABS: PLATELET SUFFICIENCY NORMAL (NORMAL); POLYCHROMASIA SLIGHT; ROULEAUX SLIGHT; TOTAL CELLS COUNTED 100 #CELLS
[2018-11-20 08:00] VITALS: BP 152/94
--- NOTE | 2018-11-20 08:59 | NUR ---
PATIENT SITTING UP ON EDGE OF BED. 02 IN USE VIA 4LNC. LUNGS DIMINISHED T/O. FAINT PB RALES NOTED. PT DENIES ANY PAIN/DISCOMFORT AT THIS TIME. BILATERAL LOWER LEG/PEDAL EDEMA. PT UPDATED ON PLAN OF CARE. WILL CONTINUE TO MONITOR. CALL LIGHT WITHIN REACH.
--- NOTE | 2018-11-20 09:42 | NUR ---
PEDRITO FROM [facility] HERE TO TRANSPORT PATIENT FOR LUNG SCAN. PATIENT REFUSING AT THIS TIME. PATIENT STATES SHE CAN'T LIE FLAT AND IS COUGHING UP SPUTUM. NOTIFIED. NO NEW ORDERS. WILL CONTINUE TO MONITOR.
--- NOTE | 2018-11-20 10:30 | NUR ---
SPO2 ON 4 L NC 99%. O2 DECREASED TO 3 L NC.
[2018-11-20] MEDS ORDERED: IBU800 MG PO (11:17)
--- NOTE | 2018-11-20 13:00 | NUR ---
MOTRIN GIVEN PER PT REQUEST FOR C/O PAIN/DISCOMFORT. WILL MONITOR EFFECTIVENESS. CALL LIGHT WITHIN REACH.
--- NOTE | 2018-11-20 14:30 | NUR ---
MOTRIN EFFECTIVE PER PT. WILL CONTINUE TO MONITOR.
[2018-11-20 16:00] VITALS: BP 149/77
--- NOTE | 2018-11-20 19:39 | NUR ---
SPOKE TO ABOUT PATIENT'S HOME MEDICATION. PATIENT AND FAMILY CONCERNED THAT PATIENT NEEDS HOME CREON AND HOME WATER-SOLUABLE VITAMIN. OKAY TO ORDER THESE MEDICATIONS PATIENT TAKES AT HOME. MEDICATIONS LABELED AND HAND DELIVERED TO PHARMACY BY THIS RN.
[2018-11-20 20:00] VITALS: BP 147/67
--- NOTE | 2018-11-20 20:35 | NUR ---
PATIENT MOVED FROM ROOM 407-1 TO 425-1 AT THIS TIME. ALL PERSONAL BELONGINGS COLLECTED AND SENT WITH PATIENT.
[2018-11-21] VITALS: BP 135/61
--- NOTE | 2018-11-21 04:42 | NUR ---
PATIENT ASSISTED OOB TO BSC. PATIENT INCONTINENT OF URINE. CLEANED UP & NEW GOWN/LINENS PROVIDED/BRIEF CHANGED. PATIENT IS SOB WITH MINIMAL EXERTION. O2 REMAINS IN USE AT 3L NC. PATIENT ASSISTED BACK INTO BED. BED LEFT LOCKED IN LOW POSITION, BED ALARM INTACT, CALL LIGHT IN REACH. WILL MONITOR.
--- NOTE | 2018-11-21 07:16 | NUR ---
24 HR chart check completed.
[2018-11-21 08:00] VITALS: BP 129/96
--- NOTE | 2018-11-21 09:40 | NUR ---
SPEECH PATHOLOGY Nursing screen complete. There are no reports of dysphagia however this dept. will be available if needs arise. PHUONG GARCIA [employer]
[2018-11-21 12:00] VITALS: BP 105/59
--- NOTE | 2018-11-21 13:24 | NUR ---
PT REFUSED CT OF CHEST.
--- NOTE | 2018-11-21 14:00 | NUR ---
Extension Course Counselor in to talk to patient. Patient states lives at home with her family. There are 19 steps in the home. Physician: Dr. Emile Olivares [facility]: none Patient's level of ADLs: MINIMAL ASSIST Patient has working utilities: yes DME: cane, walker Follow-up physician's appointment after d/c: she prefers to make her own follow up appt after discharge Does patient want to access PORTAL?: no Discharge plan discussed with patient. She is sitting on the edge of her bed visiting with her crystal gazer. She is independent in her ADLs and ambulation. Discussed home health care services and she denies any home needs. When medically stable she will be discharged to home. MAGEN GOULD
[2018-11-21 16:00] VITALS: BP 156/67
[2018-11-21 20:00] VITALS: BP 137/75
[2018-11-22] VITALS: BP 143/63
[2018-11-22 08:00] VITALS: BP 178/88
--- NOTE | 2018-11-22 08:00 | NUR ---
Flight Engineer Performance Qualified in to see patient. No new needs or request at this time. She denies any home needs. When medically stable she will be discharged to home.
--- NOTE | 2018-11-22 08:54 | NUR ---
Nursing screen received and chart review completed. Patient admitted with pneumonia. At this time no OT indicated however if patient has a decline in ADL then refer to OT. Thank you. Marianne Valencia OTR/L
[2018-11-22 16:00] VITALS: BP 153/93
[2018-11-22 20:00] VITALS: BP 133/57
--- NOTE | 2018-11-22 21:15 | NUR ---
PO MOTRIN GIVEN PER PRN ORDER FOR C/O PAIN IN BACK RATED 5/10. WILL MONITOR EFFECTIVENESS. CALL LIGHT LEFT IN REACH.
--- NOTE | 2018-11-22 22:31 | NUR ---
PT STATES EARLIER MOTRIN EFFECTIVE. PATIENT REQUESTING SOMETHING TO EAT, SAYING SHE IS STARVING. BOXED LUNCH, CRACKERS & PEANUT BUTTER, & POPSICLE PROVIDED PER REQUEST. HOB ELEVATED & TABLE SET UP FOR PT TO EAT. WILL MONITOR. CALL LIGHT LEFT IN REACH.
[2018-11-23] VITALS: BP 148/81
[2018-11-23 08:00] VITALS: BP 169/69
--- NOTE | 2018-11-23 08:17 | NUR ---
PHYSICAL THERAPY Nursing screen received. PT orders also received. Thank you. Jasmin Muñiz,PT
--- NOTE | 2018-11-23 09:37 | NUR ---
PT MEDICATED WITH ZOFRAN 8MG ORALLY FOR C/O NAUSEA.
[2018-11-23 12:00] VITALS: BP 121/62
[2018-11-23 16:00] VITALS: BP 125/83
--- NOTE | 2018-11-23 19:50 | NUR ---
MEDICATED WITH MOTRIN PER PRN ORDER FOR C/O PAIN.
[2018-11-23 20:00] VITALS: BP 121/74
--- NOTE | 2018-11-23 22:00 | NUR ---
MOTRIN EFFECTIVE FOR PAIN.
[2018-11-24] VITALS: BP 149/86
[2018-11-24 06:30] LABS: BASO # 0.1 10*3/uL (0.0-0.1); BASO % 0.4 % (0.0-1.0); EOS # 0.2 10*3/uL (0.0-0.4); HEMATOCRIT 33.9 % (37.0-47.0); HEMOGLOBIN 10.6 g/dl (12.0-16.0); LYMPH # 2.1 10*3/uL (1.3-4.4); LYMPH % 18.4 % (27.0-41.0); MEAN CELL VOLUME 107.3 fl (81.0-99.0); MEAN CORPUSCULAR HGB 33.5 pg (27.0-31.0); MEAN CORPUSCULAR HGB CONC 31.3 g/dl (33.0-37.0); MEAN PLATELET VOLUME 11.6 fl (9.6-12.3); MONO # 1.1 10*3/uL (0.1-1.0); MONO % 9.8 % (3.0-9.0); NEUT # 7.9 10*3/uL (2.3-7.9); NEUT % 68.6 % (47.0-73.0); PLATELET COUNT AUTOMATED 325 10*3/uL (130-400); RED BLOOD COUNT 3.16 10*6/uL (4.10-5.10); RED CELL DISTRI WIDTH 18.8 % (0-14.5); WHITE BLOOD COUNT 11.4 10*3/uL (4.8-10.8)
[2018-11-24 07:00] LABS: BUN 12 mg/dl (7-24); CHLORIDE 109 mmol/L (98-107); CREATININE 0.54 mg/dL (0.55-1.02); POTASSIUM 2.9 mmol/L (3.5-5.1); SODIUM 146 mmol/L (136-145)
[2018-11-24 08:00] VITALS: BP 122/62
[2018-11-24] MEDS ORDERED: DOXYCYCLINE100 M3 PO (08:23)
[2018-11-24] MEDS ORDERED: K-TAB10 MEQ PO (08:24)
--- NOTE | 2018-11-24 08:42 | NUR ---
PHYSICAL THERAPY PAtient on bedside commode and will require time to complete per patient. Thank you for this referral. Jasmin Muñiz,PT
--- NOTE | 2018-11-24 10:20 | NUR ---
PHYSICAL THERAPY Patient leaving for chest xraay. Jasmin Muñiz,.PT
--- NOTE | 2018-11-24 10:45 | NUR ---
PULSE OX ON R/A AT REST 86%, PT. PLACED ON 2 L, PULSE OX INCREASING TO 93 TO 94%. PT. IS UNABLE TO WALK ANY DISTANCE DUE TO WEAKNESS FROM CHEMO. PT. STATES SHE IS ABLE TO GO FROM BED TO BEDSIDE CHAIR ONLLY. RN AWARE. DR JONES PLACED ORDERS AND WILL NOTIFY STAFF IF PT. IS TO GO HOME.
--- NOTE | 2018-11-24 10:47 | NUR ---
PHYSICAL THERAPY PAtient still at testing. Jasmin Muñiz,PT
--- NOTE | 2018-11-24 11:43 | NUR ---
PHYSICAL THERAPY Patient evaluated on 4, full evaluation to follow. Continue with PT as per plan of care with fall, 02 and acute debility precautions. Home with family (A) And home health RN and PT recommended. PAtient is moderate complexity via chart review, tests and evaluation: 10389. Thank you for this referral. Jasmin Muñiz,PT
[2018-11-24 12:00] VITALS: BP 128/60
--- NOTE | 2018-11-24 12:12 | NUR ---
Frame Hand in to see patient. Discussed home health care services and she is agreeable. When provided with a list of agencies she chose [facility]. Faxed referral to [facility].
--- NOTE | 2018-11-24 13:13 | NUR ---
ATTEMPT MADE TO CALL DR JONES TO REPORT CXR RESULTS REQUESTED. WILL AWAIT RETURN PHONECALL.
[2018-11-24 13:34] LABS: BUN 12 mg/dl (7-24); CHLORIDE 108 mmol/L (98-107); CREATININE 0.52 mg/dL (0.55-1.02); POTASSIUM 3.4 mmol/L (3.5-5.1); SODIUM 143 mmol/L (136-145)
--- NOTE | 2018-11-24 14:02 | NUR ---
SPOKE TO DR JONES REGARDING RESULTS OF CXR AND HE STATED THE PT MAY GO HOME WITH OXYGEN LONG HER K LEVEL ARE OK.
--- NOTE | 2018-11-24 14:03 | NUR ---
SPOKE TO DR VILLAGRAN REGARDING K LEVEL OF 3.4 AND SHE SAID PT IS OK TO DISCHARGE AND THAT SHE ALREADY SPOKE TO DR JONES.
--- NOTE | 2018-11-24 14:21 | NUR ---
[facility] called for home o2 service. Rn notified.
--- NOTE | 2018-11-24 14:47 | NUR ---
PT IN BED WITH FAMILY AT BEDSIDE, I WENT BACK TO UPDATE HER ON HER DISCHARGE STATUS AND SHE FEELS THAT SHE IS NOT READY TO DISCHARGE TODAY AND WOULD LIKE ONE MORE DAY HERE. SHE STATED SHE FEELS SOB AND VERY WEAK. I CHECKED HER PULSE OX AT THAT TIME AND IS WAS 94% ON 2.5L. I LEFT A MESSAGE WITH DR VILLAGRAN TO RETURN MY PHONE CALL. IN THE MEAN TIME WE DID GET A FAX FOR THE PRESCRIPTION FOR OXYGEN.
--- NOTE | 2018-11-24 14:53 | NUR ---
SPOKE TO DR VILLAGRAN AND SHE CANCELLED THE DISCHARGE.
[2018-11-24 16:00] VITALS: BP 97/76
[2018-11-24 20:00] VITALS: BP 144/61
--- NOTE | 2018-11-24 20:00 | NUR ---
PT. STATES THAT SHE IS NOT FEELING THAT GOOD. VITAL SIGNS TAKEN & RECORDED; SEE FLOW SHEET. PULSE OX 94% ON 02 2.5 LITERS VIA NASAL CANNULA. NO DISTRESS NOTED; WILL CONTINUE TO MONITOR. CALL LIGHT WITHIN REACH.
[2018-11-25] VITALS: BP 149/71
--- NOTE | 2018-11-25 | NUR ---
RESTING IN BED WITH EYES CLOSED. RESPIRATIONS EASY & UNLABORED. NO DISTRESS NOTED. CALL LIGHT WITHIN REACH.
--- NOTE | 2018-11-25 04:00 | NUR ---
RESTING IN BED WITH EYES CLOSED. CALL LIGHT WITHIN REACH.
--- NOTE | 2018-11-25 09:00 | NUR ---
Account Collector in to see patient. No new needs or request at this time. Family visiting at the bedside. When medically stable she will be discharged to home with [facility] services.
--- NOTE | 2018-11-25 10:44 | NUR ---
PHYSICAL THERAPY informed consent given, pt identified by name and . pt presented sitting in chair spO2 91% 2.5L.pt stated she was tired and did not not want to walk at this time, agreed to seated exercise. seated ther ex B LE x10 manual resistance all planes, rests given in between to check spO2 levels which never read below 90% 2.5L. Ended treatment pt sitting in chair spO2 92% 2.5L, call light and belongings in reach.1:1 treatment with RESIDENTIAL CHILD CARE COUNSELOR 10min. DREW DURBIN RESIDENTIAL CHILD CARE COUNSELOR
[2018-11-25 12:00] VITALS: BP 153/72
--- NOTE | 2018-11-25 14:18 | NUR ---
Discharge instructions reviewed with patient/family. Patient receptive and verbalizes understanding. Follow-up care arranged. Written instructions given to patient/family. BE DEMARCO
[2018-11-25] MEDS ORDERED: DOXYCYCLINE100 M3 PO (14:37)
--- NOTE | 2018-11-25 15:30 | NUR ---
PHYSICAL THERAPY CO-SIGN I approve of the Phyical Therapy notes written above. FROYLAN THAKKAR PT
[2018-12-26] MEDS ORDERED: TRAMADOL HCL50 MG PO (20:27)
[2018-12-26] MEDS ORDERED: METHYLPREDNISONE4 MG PO (21:05)
[2018-12-26] MEDS ORDERED: IMODIUM A-D2 M2 PO (21:08)
[2018-12-26] MEDS ORDERED: MARINOL2.5 M1 PO (21:10)
[2018-12-26] MEDS ORDERED: CHEST CONGESTI400 MG PO (21:13)
[2018-12-30] MEDS ORDERED: COREG3.125 MG PO (07:59)
[2018-12-30] MEDS ORDERED: LASIX20 MG PO (07:59)
[2018-12-30] MEDS ORDERED: APRESOLINE25 MG PO ×2 (07:59→08:00)
== END 2018-11-25 14:18 | disposition home health service (06) | DRG 193 ==
LOC: ED 15:25 → EDHOLD 18:57 → 4E 18:57
PROVIDERS: Emergency Medicine; ADMIT Internal Medicine
DX: J18.9 Pneumonia, unspecified organism (principal); E43 Unspecified severe protein-calorie malnutrition; J96.21 Acute and chronic respiratory failure with hypoxia; C25.9 Malignant neoplasm of pancreas, unspecified; C78.7 Secondary malignant neoplasm of liver and intrahepatic bile duct; C78.00 Secondary malignant neoplasm of unspecified lung; E87.6 Hypokalemia; E86.0 Dehydration; E78.2 Mixed hyperlipidemia; I10 Essential (primary) hypertension; R62.7 Adult failure to thrive; E11.9 Type 2 diabetes mellitus without complications; Z96.651 Presence of right artificial knee joint; T50.2X5A Adverse effect of carbonic-anhydrase inhibitors, benzothiadiazides and other diuretics, initial encounter; E80.6 Other disorders of bilirubin metabolism; D51.0 Vitamin B12 deficiency anemia due to intrinsic factor deficiency; Z91.041 Radiographic dye allergy status; Z90.710 Acquired absence of both cervix and uterus; Z98.84 Bariatric surgery status; Z95.0 Presence of cardiac pacemaker; Y92.89 Other specified places as the place of occurrence of the external cause; Z90.49 Acquired absence of other specified parts of digestive tract; Z80.3 Family history of malignant neoplasm of breast; Z82.49 Family history of ischemic heart disease and other diseases of the circulatory system; Z68.24 Body mass index [BMI] 24.0-24.9, adult